=== PATIENT | female | born 1995 | race Caucasian/White ===

== ENCOUNTER 2017-01-10 20:37 | Emergency (ER) | payer OTHER ==
[~2017-01-10] VITALS: Ht 167.6 cm; Wt 55.5 kg
[~2017-01-10 20:37] MED LIST: CETI10CA PO; KENC1 TOP; PRED20TA PO
[2017-01-10 21:11] VITALS: Ht 167.6 cm; Wt 55.5 kg
--- NOTE | 2017-01-10 21:59 | ERD ---
ER Documentation Chief Complaint Date/Time DATE: 01/10/17 TIME: 21:50 Chief Complaint SORE THROAT SINCE YESTERDAY, N/V, FEVER HPI This pleasant 21-year-old female presents to emergency department today for complaint of difficulty swallowing, fever, and white exudate on tonsils. Patient reports body aches. Fever and chills. Patient states that she was out partying on Tuesday night, had shared drinks and cigarettes with other people. Woke yesterday with sore throat. Patient treated conservatively yesterday with Tylenol and Motrin for sore throat symptoms that has progressively worsened. Today patient reports pain is worse with swallowing, she is able to eat and drink but reports pain in doing so. Patient denies dysuria, nausea, or vomiting. ROS All systems reviewed and are negative except as per history of present illness. Medications Home Meds Active Scripts Prednisone* (Prednisone*) 20 Mg Tab, 20 MG PO DAILY for 4 Days, TAB Prov:WILLIAN SOLORIO MD 04/29/16 Cetirizine Hcl* (Zyrtec*) 10 Mg Capsule, 10 MG PO DAILY, #15 TAB.CHEW Prov:WILLIAN SOLORIO MD 04/29/16 Triamcinolone Acetonide (Triamcinolone Acetonide) 0.1% - 15 Gm Cream.gm., 1 APPLIC TOP QID for 7 Days, #1 TUB Prov:WILLIAN SOLORIO MD 04/29/16 Allergies Allergies: Coded Allergies: No Known Allergy (Unverified , 04/29/16) PMhx/Soc History of Surgery: No Anesthesia Reaction: No Hx Neurological Disorder: No Hx Respiratory Disorders: No Hx Cardiac Disorders: No Hx Psychiatric Problems: No Hx Miscellaneous Medical Probl: No Hx Alcohol Use: No Hx Substance Use: No Hx Tobacco Use: No Physical Exam Vitals Vital Signs Date Time Temp Pulse Resp B/P Pulse Ox O2 Delivery O2 Flow Rate FiO2 01/10/17 21:11 99.6 92 20 99/61 98 Vitals stable, nursing notes reviewed Physical Exam Const: No acute distress Head: Atraumatic Eyes: Normal Conjunctiva PERRLA, EOMI ENT: Bilateral tympanic membranes are erythemic, nonbulging, translucent, nasal mucosa is erythematous, terminates +2 clear mucus noted, septum midline without bleeding points, pharynx is bright angry red, tonsils +2 with exudate, uvula rises and falls with pronation. Neck: Full range of motion..~ No meningismus. Palpable cervical chain nodes. Resp: Chest rises and falls symmetrically, clear to auscultation bilaterally, no rales wheezes or rhonchi with forced expiration Cardio: Regular rate and rhythm, no murmurs Abd: Soft, non tender, non distended. No hepatosplenomegaly Skin: No petechiae or rashes Back: Ext: Neur: Awake and alert Psych: Normal Mood and Affect Procedures/MDM This pleasant 21-year-old female presents to emergency department with 1 day history of sore throat, fever, chills, body aches, Centor criteria applied 51- 53 probability of strep throat patient will be treated with Pen-Vee K 500 mg 3 times daily 10 days. Chloraseptic throat spray as needed, Tylenol or Motrin for fever reduction and body aches. I feel patient is candidate for outpatient management by primary care physician, return to emergency department for any worsening of symptoms, symptoms not improving after 48 hours, inability to swallow. Fevers not responding to Tylenol. I feel the patient is stable for discharge at this time. I have discussed results, examination findings, the treatment plan with the patient and family present prior to discharge. Indications for emergent reevaluation, side effects of medication were also discussed. All questions were answered. Patient verbalizes understanding and agrees with plan of care. Departure Diagnosis: Primary Impression: Strep pharyngitis Condition: Good Patient Instructions: Pharyngitis, Strep (Presumed) Comments Thank you for for coming to [facility] for your care today. Please ask your nurse or provider if you have questions about your care today and do not leave until all your questions have been answered. Please use any medications given as directed and follow-up with your doctor (or the doctor you were referred to) in the next 2-3 days. If you do not have a primary care doctor you may follow up at the [facility] (listed below). You may also use motrin and tylenol as needed for fever and/or pain unless instructed otherwise by your provider or nurse. Indications for more urgent follow-up have been discussed, but you may return to the Emergency Department at ANY time for any worrisome or worsening symptoms. If you have abdominal pain, please know that no test or exam you received is perfect and you should follow up within 8 hours for continued pain. If you had any imaging studies today, such as an X-Ray or CT Scan, these studies will be reviewed later by a radiologist. You will be called if there are important findings that were not identified today, so make sure the contact information you provided at registration is correct. If you received any narcotic pain control medicine today, such as Vicodin, Morphine or Dilaudid, your coordination and judgment may be affected for a number of hours. Please do not drive or operate heavy machinery, and you may want someone to assist you at home. If you were given a prescription for narcotic medication, be aware that it is very addictive- use sparingly and only if necessary. ISAAK WILKERSON Jan 10, 2017 21:59
[2017-01-10] MEDS ORDERED: PEN500 PO (22:00)
[2017-01-10] MEDS ORDERED: IBUP-1542 PO (22:01)
[2017-01-10] MEDS ORDERED: PHEN30SP8 MM (22:01)
== END 2017-01-10 22:08 | disposition home or self-care (01) ==
LOC: FTE 20:37
DX: J02.0 Streptococcal pharyngitis (principal)
CPT/HCPCS: 99283

== ENCOUNTER 2017-02-19 10:12 | Emergency (ER) | payer OTHER ==
[~2017-02-19] VITALS: Ht 167.6 cm; Wt 54.0 kg
[~2017-02-19 10:12] MED LIST changes: +IBUP-1542 PO; +PEN500 PO; +PHEN30SP8 MM
[2017-02-19 10:15] VITALS: Ht 167.6 cm; Wt 54.0 kg
--- NOTE | 2017-02-19 11:28 | ERD ---
ER Documentation Chief Complaint Date/Time DATE: 02/19/17 TIME: 11:24 Chief Complaint rt side chest chest wall pain since yesterday , no sob HPI This is a 21-year-old female who presents to the emergency department today complaining some right-sided chest wall pain that started yesterday. Patient states she has not taken any medication but has improved today. States that she has pain when she raises her arm up and twists her shoulders. Denies any fevers or chills, cough. ROS All systems reviewed and are negative except as per history of present illness. Medications Home Meds Active Scripts Acetaminophen* (Tylophen*) 500 Mg Capsule, 1 CAP PO Q6H Y for PAIN AND OR ELEVATED TEMP, #30 CAP Prov:KUSUM GARRIDO PA-C 02/19/17 Naproxen* (Naprosyn*) 500 Mg Tablet, 500 MG PO BID Y for PAIN AND/OR INFLAMMATION, #30 TAB Prov:KUSUM GARRIDO PA-C 02/19/17 Ibuprofen* (Motrin*) 600 Mg Tab, 600 MG PO Q6, #30 TAB Prov:ROCK,ISAAK 01/10/17 Phenol/Glycerin (Chloraseptic Max [place]) 30 Ml [place], 1 SPRAY MM Q2H Y for SORE THROAT, #1 BOTTLE Prov:ROCK,ISAAK 01/10/17 Penicillin V Potassium* (Penicillin V K*) 500 Mg Tab, 500 MG PO TID for 10 Days , TAB Prov:ROCK,ISAAK 01/10/17 Prednisone* (Prednisone*) 20 Mg Tab, 20 MG PO DAILY for 4 Days, TAB Prov:WILLIAN SOLORIO MD 04/29/16 Cetirizine Hcl* (Zyrtec*) 10 Mg Capsule, 10 MG PO DAILY, #15 TAB.CHEW Prov:WILLIAN SOLORIO MD 04/29/16 Triamcinolone Acetonide (Triamcinolone Acetonide) 0.1% - 15 Gm Cream.gm., 1 APPLIC TOP QID for 7 Days, #1 TUB Prov:WILLIAN SOLORIO MD 04/29/16 Allergies Allergies: Coded Allergies: No Known Allergy (Unverified , 04/29/16) PMhx/Soc History of Surgery: No Anesthesia Reaction: No Hx Neurological Disorder: No Hx Respiratory Disorders: No Hx Cardiac Disorders: No Hx Psychiatric Problems: No Hx Miscellaneous Medical Probl: No Hx Alcohol Use: No Hx Substance Use: No Hx Tobacco Use: No Physical Exam Vitals Vital Signs Date Time Temp Pulse Resp B/P Pulse Ox O2 Delivery O2 Flow Rate FiO2 02/19/17 10:15 98.1 96 18 115/73 100 Physical Exam Const: NAD Head: Atraumatic Eyes: Normal Conjunctiva ENT: Ears TMs normal. Nose no drainage. Throat no erythema no exudate. Neck: Full range of motion..~ No meningismus. Resp: Clear to auscultation bilaterally. No absent breath sounds. No wheezing. Increased pain with trunk rotation to the right and left. Mild tenderness to palpation Cardio: Regular rate and rhythm, no murmurs Skin: No petechiae or rashes Back: No midline or flank tenderness Ext: No cyanosis, or edema Neur: Awake and alert Psych: Normal Mood and Affect Procedures/MDM This is a 21-year-old female who presents the emergency department today complains of right-sided chest pain that started yesterday. When I walked into the exam room patient was in the room laughing with her boyfriend. Patient has not taken any medication but she did report improvement. Given patient's complaints of pain when she moves her right arm and trunk twisting her symptoms at this time appear most consistent with costochondritis. I did offer to obtain a chest x-ray for the patient however she has declined at this time. Her oxygen saturation 100%. She is not tachycardic and she is afebrile and otherwise well-appearing. Low suspicion for PE, abscess, pleural effusion, pneumothorax. I also offered to give the patient medication for pain while she is here in the emergency department however she declined stating that she would just take a prescription for home. Patient was given a prescription for Naprosyn and Tylenol. At this time the patient is stable for discharge and outpatient management. Patient should follow up with their PCP in the next 1-2 days. They may return to the emergency department sooner for any persistent or worsening of symptoms. Patient understood and agreed with the plan. Departure Diagnosis: Primary Impression: Chest wall pain Condition: Fair KUSUM GARRIDO PA-C February 19, 2017 11:28
[2017-02-19] MEDS ORDERED: NAPR-260 PO (11:29)
[2017-02-19] MEDS ORDERED: ACET500C5 PO (11:30)
== END 2017-02-19 12:05 | disposition home or self-care (01) ==
LOC: FTE 10:12
DX: R07.89 Other chest pain (principal)
CPT/HCPCS: 99283